=== PATIENT | female | born 1985 | race Caucasian/White ===

== ENCOUNTER → 2021-04-28 | Outpatient (CLI) | payer OTHER ==
--- NOTE | 2021-04-28 16:46 | Diagnostic Imaging Report ---
INDICATION: Routine anatomic survey. TECHNIQUE: Multiple real-time grayscale images were obtained over the gravid uterus. COMPARISON: None FINDINGS: Single live intrauterine is identified. heart rate is documented at 149 bpm. Amniotic fluid was not objectively measured, but subjectively appears to be within normal limits. Placenta is anterior, not low-lying. Anatomic survey was performed and is grossly unremarkable. kidneys, bladder, stomach, four-chamber heart, cord insertion and three-vessel cord are well visualized. Intracranial structures and spine are grossly unremarkable as well. Please see below for additional size measurements. Biometrical measurements are as follows: Biparietal 4.35 cm, age 19 weeks 2 days. Head circumference 16.88 cm, age 19 weeks 4 days. Abdominal circumference 14.41 cm, age 19 weeks 6 days. Femur length 3.12 cm, age 19 weeks 5 days. Sonographic estimate age: 19 weeks 5 days. Sonographic estimated date of delivery: 09/17/2021. Estimated Weight: 306 gm (+/- 45 gm). LMP percentile: 28%. heart rate: 149 beats per minute. number: 1 of 1. Clinical dates: 20 weeks and 0 days with estimated date of delivery of 09/15/2021. IMPRESSION: Single live intrauterine with size and dates as described above. No gross abnormalities are seen on today's study. Dictated by: Dictated on workstation # [id number]
== END ==
LOC: RAD 15:15
PROVIDERS: ATTEND Nurse Practitioner Women's Health
DX: Z34.02 Encounter for supervision of normal first pregnancy, second trimester (principal); Z3A.20 20 weeks gestation of pregnancy
CPT/HCPCS: 76805

== ENCOUNTER 2021-09-23 06:30 | Inpatient (IN) | payer OTHER ==
[2021-09-23] VITALS (43 sets, daily range): BP systolic 97–141; BP diastolic 51–88
[~2021-09-23] VITALS: Ht 167 cm; Wt 83.0 kg
--- OUTSIDE RECORDS SUMMARY | 2021-09-23 07:37 | XMS REPORT | Clinical Summary ---
Author Author [facility] Organization [facility] Address Unknown Phone Unavailable Care Team Providers Care Sizing Machine Tender Name Role Phone Calvin Gimenez MD PCP Source Comments Some departments are not documenting in the electronic medical record. If you d o not see the information that you expected, contact Release of Information in [facility] [employer] Information Management department at [phone] for further assistan ce in locating additional records.[facility] Allergies No known active allergies Medications End Date Status Medication Sig Dispensed Refills Start Date Active ergocalciferol (VITAMIN Take 1 Cap by 12 Cap 3 D-2) 50,000 unit PO mouth Every 7 0 capsuleIndications: Days. Vitamin D deficiency Active MULTI-VITAMIN PO Take by 0 mouth. Active pyridoxine (VITAMIN B-6) Take 1 Tab by 60 Tab 2 25 mg PO Tab mouth twice 1 daily. Active levothyroxine (SYNTHROID) 1 Tab daily. 90 Tab 3 50 mcg PO tablet 1 Active Problems Problem Noted Date Hypothyroidism 03/04/2010 PCOS (polycystic ovarian syndrome) 03/04/2010 Immunizations Name Administration Dates Next Due DTaP Vaccine 02/23/2010 Surgical History Surgery Date Site/Laterality Comments TONSIL AND ADENOIDECTOMY Medical History Medical History Date Comments Hypothyroidism 2008 PCOS (polycystic ovarian syndrome) Family History Medical History Relation Name Comments Diabetes Father Hypertension Father Heart Attack Maternal Grandfather Cancer Maternal lung cancer Grandmother Diabetes Mother Hypertension Mother Other Mother sarcoid Thyroid Disease Mother Diabetes Paternal Grandmother Thyroid Disease Sister Relation Name Status Comments Father Maternal Grandfather Maternal Grandmother Mother Paternal Grandmother Sister Social History Date Tobacco Use Types Packs/Day Years Used Never Smoker Comments Alcohol Use Standard Drinks/Week No 0 (1 standard drink = 0.6 o z pure alcohol) Sex Assigned at Date Recorded Not on file Obstetrics History Para Term AB IAB SAB Ectopic Multiple Living Live B irths 1 1 0 1 Date GA Total Labor Labor/2nd/3rd Weight Sex Delivery Anes PTL Leida A1 A5 Name Clin Outcome SAB Last Filed Vital Signs Reading Time Taken Comments Vital Sign 128/74 08/12/2010 3:32 PM [employer]AIL [employer] REPRESENTATIVE Blood Pressure 76 08/12/2010 3:32 PM [employer]AIL [employer] REPRESENTATIVE Pulse 37 C (98.6 F) 08/12/2010 3:32 PM [employer]AIL [employer] SALES REPRESENTATIVE Temperature 16 08/12/2010 3:32 PM [employer]AIL [employer]ESS SALES REPRESENTATIVE Respiratory Rate - - Oxygen Saturation - - Inhaled Oxygen Concentration 67.2 kg (148 lb 3.2 oz) 08/12/2010 3:32 PM [employer]AIL [employer] SAL[employer] REPRESENTATIVE Weight 167.6 cm (5' 6") 08/12/2010 3:32 PM [employer] REPRESENTATIVE Height 23.92 08/12/2010 3:32 PM [employer]AIL [employer] REPRESENTATIVE Body Mass Index Plan of Treatment Health Maintenance Due Date Last Done Comments COVID-19 VACCINE (1) 1989 HIV SCREENING 09/01/1999 HEPATITIS C SCREENING 2002 PHYSICAL (COMPREHENSIVE) 2002 EXAM CERVICAL CANCER SCREENING 2005 DTAP/TDAP VACCINES (2 - 02/24/2020 02/23/2010 Tdap) INFLUENZA VACCINE 04/05/2022 Results Not on filefrom Last 3 Months Advance Directives Patient Hatchery Man Explanation Type Date Recorded Advance Directives 07/26/2010 12:00 AM and Living Will Care Teams Start Date End Date Sizing Machine Tender Relationship Specialty 03/04/10 Calvin Gimenez MD PCP - General [address] [place] [id number]
[2021-09-23] MEDS ORDERED: MINERAL OIL 30 ML OIL TOP PRN (07:45)
[2021-09-23 08:21] LABS: BASOPHILS # (AUTO) 0.1 10^3/uL (0.0-0.1); BASOPHILS % (AUTO) 1 % (0-10); EOSINOPHILS # (AUTO) 0.3 10^3/uL (0.0-0.3); EOSINOPHILS % (AUTO) 3 % (0-10); HEMATOCRIT 38 % (35-52); HEMOGLOBIN 13.2 g/dL (11.5-16.0); LYMPHOCYTES # (AUTO) 1.9 10^3/uL (1.0-4.0); LYMPHOCYTES % (AUTO) 19 % (12-44); MEAN CORPUSCULAR HEMOGLOBIN 32 pg (25-34); MEAN CORPUSCULAR HGB CONC 35 g/dL (32-36); MEAN CORPUSCULAR VOLUME 93 fL (80-99); MEAN PLATELET VOLUME 12.4 fL (9.0-12.2); MONOCYTES # (AUTO) 0.8 10^3/uL (0.0-1.0); MONOCYTES % (AUTO) 8 % (0-12); NEUTROPHILS % (AUTO) 69 % (42-75); PLATELET COUNT 132 10^3/uL (130-400); WHITE BLOOD COUNT 10.1 10^3/uL (4.3-11.0)
--- NOTE | 2021-09-23 08:30 | History & Physical-OB ---
OB - Chief Complaint & HPI Date/Time Date of Admission: Date of Admission: Sep 23, 2021 at 07:34 Date seen by a Provider: Sep 23, 2021 Time Seen by a Provider: 08:25 Chief Complaint/History OB-Reason for Admission/Chief: Induction of Labor Hx : 4 Hx Para: 2 Expected Date of Delivery: Sep 15, 2021 Gestational Age in Weeks: 41 Gestational Age in Days: 1 Indication for induction: post dates Admission Nurse Assessment Rev: Yes History of Labs A neg Antibody neg RI RPR NR HBsAg NR HIV NR GC neg GBS neg Allergies and Home Medications Allergies Coded Allergies: No Known Drug Allergies (Unverified , 09/23/21) Patient Home Medication List Home Medication List Reviewed: Yes OB - History Hx of Present Care: Yes Ultrasounds: Normal mid trimester US Obstetrical Complications: None Medical Complications: None Patient Past Medical History n/a OB - Admission Exam Physical Exam HEENT: NCAT Heart: Rhythm Normal Lungs: Clear Abdomen: Gravid Extremities: Normal Reflexes: Normal Cervical Dilatation: 5cm Effacement: 75% Station: -1 Membranes: Intact Heart Rate: 130's Accelerations: Accelerations Present Decelerations: No Decelerations Short Term Variability: Present Assisted Variability: Average (6-25) Contractions on Admission: 6-10 Minutes Apart Intensity: Mild Olmos Scoring Tool (Modified) Dilation (cm): >5cm (3) Effacement (%): 80-100% (3) Descent/Station: -1,0 (2) Cervix Consistency: Soft (2) Cervix Position: Anterior (2) Add 1 point for: Each previous vaginal delivery (1) Subtract 1 point for: Postdate (-1) Olmos Score: 13 Labs Laboratory Tests Test 09/23/21 07:43 Range/Units White Blood Count 10.1 4.3-11.0 10^3/uL Red Blood Count 4.12 3.80-5.11 10^6/uL Hemoglobin 13.2 11.5-16.0 g/dL Hematocrit 38 35-52 % Mean Corpuscular Volume 93 80-99 fL Mean Corpuscular Hemoglobin 32 25-34 pg Mean Corpuscular Hemoglobin Concent 35 32-36 g/dL Red Cell Distribution Width 11.9 10.0-14.5 % Platelet Count 132 130-400 10^3/uL Mean Platelet Volume 12.4 H 9.0-12.2 fL Immature Granulocyte % (Auto) 0 % Neutrophils (%) (Auto) 69 42-75 % Lymphocytes (%) (Auto) 19 12-44 % Monocytes (%) (Auto) 8 0-12 % Eosinophils (%) (Auto) 3 0-10 % Basophils (%) (Auto) 1 0-10 % Neutrophils # (Auto) 7.0 1.8-7.8 10^3/uL Lymphocytes # (Auto) 1.9 1.0-4.0 10^3/uL Monocytes # (Auto) 0.8 0.0-1.0 10^3/uL Eosinophils # (Auto) 0.3 0.0-0.3 10^3/uL Basophils # (Auto) 0.1 0.0-0.1 10^3/uL Immature Granulocyte # (Auto) 0.0 0.0-0.1 10^3/uL OB - Assessment/Plan/Diagnosis Assessment Assessment: induction of labor Admission Dx 36 yo @ 41.1 AMA Post dates GBS neg Admission Status: Inpatient Order (span 2 midnights) Reason for Inpatient Admission: IOL at 41 weeks Plan Plan: Induction Induction Method: CJ KIRBY DO Sep 23, 2021 08:30
[2021-09-23] MEDS ORDERED: fentaNYL 2 mcg/ml BUPIVA 0.125 100 ML ONE (09:02)
[2021-09-23] MEDS ORDERED: ONDANSETRON 4 MG/2 ML (SDV) Z0FRAN IV PRN (09:45)
[2021-09-23] MEDS ORDERED: NALOXONE 0.4 MG/ML 1 ML (NARCAN) VIAL IV PRN ×3 (09:45→15:00)
[2021-09-23] MEDS ORDERED: diphenhydrAMINE 50 MG/ML INJ (BENADRYL) IV PRN (09:45)
[2021-09-23] MEDS ORDERED: METOCLOPRAMIDE INJ 10 MG/2 ML (REGLAN) IV PRN (09:45)
[2021-09-23] MEDS ORDERED: EPIDURAL (fentaNYL 2 MCG/ML BUPIVA 0.125%)100 ML BAG EPI SCH (09:45)
[2021-09-23] MEDS ORDERED: LACTATED RINGERS 1,000 ML IV SCH (09:45)
[2021-09-23] MEDS: D5 LR IV SOLUTION 1,000 ML IV SCH ×2 (09:47→16:12)
[2021-09-23] MEDS ORDERED: fentaNYL 2 mcg/ml BUPIVA 0.125 100 ML EPI PRN (10:00)
[2021-09-23] MEDS ORDERED: CATHETER FLUSH 10 ML SYR IV SCH ×2 (14:00→22:00)
[2021-09-23] MEDS ORDERED: LIDOCAINE/EPI 2% 1:200,00 (XYLOCAINE) 10 ML VIAL ONE (14:03)
[2021-09-23] MEDS ORDERED: OXYTOCIN PRE-MIX DRIP 500 ML IV ONE (14:07)
[2021-09-23] MEDS: OXYTOCIN PRE-MIX DRIP 500 ML IV SCH ×2 (14:39→15:19)
--- NOTE | 2021-09-23 14:53 | OB Labor & Delivery Record ---
L&D History Date of Service Date of Service: Sep 23, 2021 History Expected Date of Delivery: Sep 15, 2021 Gestational Age in Weeks: 41 Hx : 4 Hx Para: 2 Complications Events: Routine care Operative Indications (Cesarea: N/A-Vaginal Delivery Intrapartal Events: None L&D Stage1 Stage One Onset of Labor - Date: Sep 23, 2021 Monitors and Tracing Monitor Mode: Internal Heart Rate: 130 Station: 0 Prison Variability: Average (6-10) Short Term Variability: Present Presentation: Vertex Vital Signs VS - Last 72 Hours, by Label 09/23/21 09/23/21 09/23/21 09/23/21 07:55 07:55 09:18 09:25 Temp 36.4 36.4 Pulse 84 84 106 86 Resp 16 16 16 16 B/P (MAP) 140/88 (105) 141/84 (103) 134/76 (95) Pulse Ox 99 99 99 99 O2 Delivery Room Air Room Air Room Air Room Air 09/23/21 09/23/21 09/23/21 09/23/21 09:30 09:35 09:40 09:45 Temp 37.4 Pulse 93 83 75 86 Resp 16 16 16 16 B/P (MAP) 127/75 (92) 120/76 (91) 121/80 (94) 121/87 (98) Pulse Ox 99 98 98 O2 Delivery Room Air Room Air Room Air Room Air 09/23/21 09/23/21 09/23/21 09/23/21 09:50 09:53 09:56 09:59 Pulse 82 79 81 84 Resp 16 16 16 16 B/P (MAP) 120/77 (91) 117/77 (90) 113/73 (86) 117/77 (90) Pulse Ox 98 98 98 98 O2 Delivery Room Air Room Air Room Air Room Air 09/23/21 09/23/21 09/23/21 09/23/21 10:00 10:05 10:08 10:10 Pulse 82 84 78 85 Resp 16 16 16 16 B/P (MAP) 118/81 (93) 113/75 (88) 113/73 (86) 111/70 (84) Pulse Ox 99 98 100 100 O2 Delivery Room Air Room Air Room Air Room Air 09/23/21 09/23/21 09/23/2122 10:13 10:20 10:25 10:40 Pulse 83 86 77 91 Resp 16 16 16 16 B/P (MAP) 118/76 (90) 118/77 (91) 119/69 (86) 119/76 (90) Pulse Ox 100 100 100 100 O2 Delivery Room Air Room Air Room Air Room Air 09/23/21 09/23/21 09/23/21 09/23/21 10:55 11:10 11:25 11:40 Temp 37.2 Pulse 80 88 80 94 Resp 16 16 16 16 B/P (MAP) 117/76 (90) 120/78 (92) 118/77 (91) 124/77 (93) Pulse Ox 100 100 100 100 O2 Delivery Room Air Room Air Room Air Room Air 09/23/21 09/23/21 09/23/21 09/23/21 11:55 12:10 12:25 12:35 Pulse 81 92 73 71 Resp 16 16 16 16 B/P (MAP) 122/80 (94) 118/76 (90) 122/75 (91) 120/77 (91) Pulse Ox 99 99 99 99 O2 Delivery Room Air Room Air Room Air Room Air 09/23/21 09/23/21 09/23/21 09/23/21 12:40 12:45 13:00 13:10 Pulse 81 75 74 Resp 16 16 16 B/P (MAP) 120/77 (91) 129/85 (100) 127/81 (96) Pulse Ox 100 100 O2 Delivery Room Air Room Air Room Air Room Air 09/23/21 09/23/21 13:15 13:30 Temp 37.2 Pulse 81 Resp 16 B/P (MAP) 128/80 (96) Pulse Ox 100 O2 Delivery Room Air Room Air Rupture of Membranes Spontaneous Ruture of Membrane: No Amniotic Membrane Rupture Time: 832 Amniotic Membrane Fluid Desc.: Clear Vaginal Bleeding Description: Normal Show Induction/Anesthesia Epidural Cath Placement - Time: 923 Progress/Notes Patient admitted for post dates IOL, AROM performed as only form of augmentation at 5 cm dilatation. Epidural received and the patient progressed to complete and +1 station. L&D Stage2 Stage Two Stage II Date: Sep 23, 2021 Monitors and Tracing Monitor Mode: Internal Heart Rate: 130 Position: Right Occiput Anterior Presentation: Vertex Cord Descript/Complications Cord Vessel Description: 3 Vessels Delivery Type Delivery Method: Spontaneous Vaginal Anterior Shoulder: Left Episiotomy/Perineal Laceration Laceraction(s)/Extensions: Yes Episiotomy Description: Perineal Extension/lac, 1st degree Degree (describe repair) 1st degree perineal laceration repaired using 3-0 rapide in usual fashion. Condition of Infant Delivery 1 minute Comment: 8 5 minute Comment: 8 Notes Live female weight 8lbs even. Condition of Condition of Infant: Living Exam: No Observed Abnormalities Resuscitation Resuscitation: N/A - Spontaneous Resp L&D Stage3 Stage Three Stage III Date: Sep 23, 2021 Pictocin Pitocin Administration Comment: 30 mu wide open after delivery of placenta Placenta Delivery Placenta Delivery: Spontaneous Delivery Summary Summary Estimated blood loss (mL): 350 Attending at delivery: Cj Baker DO Condition of Delivery Examined: Cervix Examined, Uterus Explored Post Hemorrhage: No Condition of Mother stable Condition of (s) stable CJ BAKER DO Sep 23, 2021 14:53
--- NOTE | 2021-09-23 14:54 | Discharge Inst-Women's Service ---
Discharge Inst-Women's Serv Depart Medication/Instructions New, Converted or Re-Newed RX: Transmitted to Pharmacy Final Diagnosis PPD 1 NVD Problems Reviewed?: Yes Consults/Follow Up Additional Follow Up: Yes Orders/Referrals Dr. Baker in 6 weeks Activity Activity: Activity as Tolerated Driving Instructions: No Driving for 1 Week NO SMOKING: NO SMOKING Nothing Inside Vagina: No Douching, No Ault, No Tampons Diet Discharge Diet: No Restrictions Symptoms to Report to : Bleeding Excessive, Pain Increased, Fever Over 101 Degrees F, Vaginal Bleeding Increase, Questions/Concerns For Any Problems or Questions: Contact Your Physician CJ BAKER DO Sep 23, 2021 14:54
[2021-09-23] MEDS ORDERED: ACHD5005 PO (14:56)
[2021-09-23] MEDS ORDERED: FERR325T24 PO (14:56)
[2021-09-23] MEDS ORDERED: IBUP-844 PO (14:56)
[2021-09-23] MEDS ORDERED: DIBU30OI TOP (14:56)
[2021-09-23] MEDS ORDERED: BENZ78AE5 TP (14:56)
[2021-09-23] MEDS ORDERED: DOCU100C37 PO (14:56)
[2021-09-23] MEDS ORDERED: BENZOCAINE/MENTHOL (DERMOPLAST) 56 ML CAN TP PRN (15:00)
[2021-09-23] MEDS ORDERED: HYDROcodone/APAP 5 MG/325 MG (LORTAB) TAB PO PRN (15:00)
[2021-09-23] MEDS ORDERED: MEASLES,MUMPS,RUBELLA 1 EA INJ SQ ONE (15:00)
[2021-09-23] MEDS ORDERED: DIBUCAINE 1% OINTMENT 30 GM TUBE TOP PRN (15:00)
[2021-09-23] MEDS ORDERED: TETANUS,DIPTH,PERTUSS P/F (BOOSTRIX) 0.5 ML VIAL IM ONE (15:00)
[2021-09-23] MEDS ORDERED: WITCH HAZEL(TUCKS) 40 EA JAR TOP PRN (15:00)
[2021-09-23] MEDS: ACETAMINOPHEN 500 MG TAB (TYLENOL) PO SCH (18:48)
[2021-09-23] MEDS: IBUPROFEN 600 MG (MOTRIN) TAB PO SCH (18:48)
[2021-09-23] MEDS: DOCUSATE SODIUM 100 MG (COLACE) CAP PO SCH (20:04)
[2021-09-24 00:16] VITALS: BP 106/60
[2021-09-24] MEDS: ACETAMINOPHEN 500 MG TAB (TYLENOL) PO SCH ×3 (00:16→08:30)
[2021-09-24] MEDS: IBUPROFEN 600 MG (MOTRIN) TAB PO SCH ×4 (00:16→12:34)
[2021-09-24 04:30] VITALS: BP 108/55
[2021-09-24 05:34] LABS: BASOPHILS # (AUTO) 0.1 10^3/uL (0.0-0.1); BASOPHILS % (AUTO) 0 % (0-10)
[2021-09-24 05:37] LABS: EOSINOPHILS # (AUTO) 0.2 10^3/uL (0.0-0.3); EOSINOPHILS % (AUTO) 2 % (0-10); HEMATOCRIT 34 % (35-52); HEMOGLOBIN 11.4 g/dL (11.5-16.0); LYMPHOCYTES # (AUTO) 2.7 10^3/uL (1.0-4.0); LYMPHOCYTES % (AUTO) 21 % (12-44); MEAN CORPUSCULAR HEMOGLOBIN 31 pg (25-34); MEAN CORPUSCULAR HGB CONC 34 g/dL (32-36); MEAN CORPUSCULAR VOLUME 94 fL (80-99); MEAN PLATELET VOLUME 11.8 fL (9.0-12.2); MONOCYTES # (AUTO) 0.8 10^3/uL (0.0-1.0); MONOCYTES % (AUTO) 6 % (0-12); NEUTROPHILS # (AUTO) 9.2 10^3/uL (1.8-7.8); NEUTROPHILS % (AUTO) 71 % (42-75); PLATELET COUNT 115 10^3/uL (130-400); WHITE BLOOD COUNT 13.1 10^3/uL (4.3-11.0)
[2021-09-24] MEDS ORDERED: FERROUS SULF 325 MG (IRON) TAB PO SCH (07:00)
[2021-09-24] MEDS ORDERED: PRENATAL VITAMIN 1 EA TAB PO SCH (07:00)
--- NOTE | 2021-09-24 08:15 | Anesthesia-Regional Post-Op ---
Regional Patient Condition Mental Status: Alert, Oriented x3 Circulation: Same as Pre-Op Headache: Absent Sensation: Full Recovery Motor Block: Absent Post Op Complications Complications None Follow Up Care/Instructions Patient Instructions None needed. Anesthesia/Patient Condition Patient is doing well, no complaints, stable vital signs, no apparent adverse anesthesia problems. No complications reported per nursing. D/C home per [facility] Criteria: Yes CHRISTIANO MUSTAFA CRNA Sep 24, 2021 08:15
[2021-09-24] MEDS: DOCUSATE SODIUM 100 MG (COLACE) CAP PO SCH (08:30)
[2021-09-24 08:32] VITALS: BP 122/74
--- NOTE | 2021-09-24 12:31 | Postpartum Progress Note ---
Note Note Day #1 Subjective: Patient is without complaints. Ambulating, voiding. Tolerating a regular diet without nausea or vomiting. Normal lochia. Pain is well controlled with oral pain medications. exclusively. Passing flatus. Objective: VS - Last 72 Hours, by Label 09/23/21 09/23/21 09/23/21 09/23/21 07:55 07:55 09:18 09:25 Temp 36.4 36.4 Pulse 84 84 106 86 Resp 16 16 16 16 B/P (MAP) 140/88 (105) 141/84 (103) 134/76 (95) Pulse Ox 99 99 99 99 O2 Delivery Room Air Room Air Room Air Room Air 09/23/21 09/23/21 09/23/21 09/23/21 09:30 09:35 09:40 09:45 Temp 37.4 Pulse 93 83 75 86 Resp 16 16 16 16 B/P (MAP) 127/75 (92) 120/76 (91) 121/80 (94) 121/87 (98) Pulse Ox 99 98 98 O2 Delivery Room Air Room Air Room Air Room Air 09/23/21 09/23/21 09/23/21 09/23/21 09:50 09:53 09:56 09:59 Pulse 82 79 81 84 Resp 16 16 16 16 B/P (MAP) 120/77 (91) 117/77 (90) 113/73 (86) 117/77 (90) Pulse Ox 98 98 98 98 O2 Delivery Room Air Room Air Room Air Room Air 09/23/21 09/23/21 09/23/21 09/23/21 10:00 10:05 10:08 10:10 Pulse 82 84 78 85 Resp 16 16 16 16 B/P (MAP) 118/81 (93) 113/75 (88) 113/73 (86) 111/70 (84) Pulse Ox 99 98 100 100 O2 Delivery Room Air Room Air Room Air Room Air 09/23/21 09/23/21 09/23/21 09/23/21 10:13 10:20 10:25 10:40 Pulse 83 86 77 91 Resp 16 16 16 16 B/P (MAP) 118/76 (90) 118/77 (91) 119/69 (86) 119/76 (90) Pulse Ox 100 100 100 100 O2 Delivery Room Air Room Air Room Air Room Air 09/23/21 09/23/21 09/23/21 09/23/21 10:55 11:10 11:25 11:40 Temp 37.2 Pulse 80 88 80 94 Resp 16 16 16 16 B/P (MAP) 117/76 (90) 120/78 (92) 118/77 (91) 124/77 (93) Pulse Ox 100 100 100 100 O2 Delivery Room Air Room Air Room Air Room Air 09/23/21 09/23/21 09/23/21 09/23/21 11:55 12:10 12:25 12:35 Pulse 81 92 73 71 Resp 16 16 16 16 B/P (MAP) 122/80 (94) 118/76 (90) 122/75 (91) 120/77 (91) Pulse Ox 99 99 99 99 O2 Delivery Room Air Room Air Room Air Room Air 09/23/21 09/23/21 09/23/21 09/23/21 12:40 12:45 13:00 13:10 Pulse 81 75 74 Resp 16 16 16 B/P (MAP) 120/77 (91) 129/85 (100) 127/81 (96) Pulse Ox 100 100 O2 Delivery Room Air Room Air Room Air Room Air 09/23/21 09/23/21 09/23/21 09/23/21 13:15 13:30 13:45 14:00 Temp 37.2 Pulse 81 86 93 Resp 16 16 16 B/P (MAP) 128/80 (96) 139/76 (97) 125/74 (91) Pulse Ox 100 100 99 O2 Delivery Room Air Room Air Room Air Room Air 09/23/21 09/23/21 09/23/21 09/23/21 14:15 14:30 14:37 14:54 Temp 37.2 Pulse 108 125 116 108 Resp 16 16 16 16 B/P (MAP) 129/86 (100) 134/86 (102) 139/62 (87) 114/70 (85) Pulse Ox 99 99 O2 Delivery Room Air Room Air Room Air Room Air 09/23/21 09/23/21 09/23/21 09/23/21 15:06 15:21 15:35 15:50 Pulse 94 93 92 93 Resp 16 16 16 16 B/P (MAP) 111/56 (74) 117/58 (77) 100/53 (69) 97/51 (66) O2 Delivery Room Air Room Air Room Air Room Air 09/23/21 09/23/21 09/24/21 09/24/21 16:27 20:05 00:16 04:30 Temp 36.1 36.4 36.4 Pulse 96 87 67 68 Resp 16 18 18 18 B/P (MAP) 100/57 (71) 107/61 (76) 106/60 (75) 108/55 (72) Pulse Ox 98 96 97 O2 Delivery Room Air Room Air Room Air 09/24/21 08:32 Temp 36.5 Pulse 86 Resp 18 B/P (MAP) 122/74 (90) Pulse Ox 98 O2 Delivery Room Air Physical Exam: General - Alert and oriented, no apparent distress Abdomen - Soft, appropriately tender to palpation, non-distended, fundus firm at umbilicus Extremities - no edema, negative Myron's bilaterally Assessment: Post- day # 1, status post vaginal delivery. Recovering well, hemodynamically stable Plan: Routine care. Viable female . Encourage breast feeding. Encourage ambulation. Heme: preop 13.2 --> 11.4. Plan for discharge today. Vitals - Labs Vital Signs - I&O Vital Signs Date Time Temp Pulse Resp B/P (MAP) Pulse Ox O2 Delivery O2 Flow Rate FiO2 09/24/21 08:32 36.5 86 18 122/74 (90) 98 Room Air 09/24/21 04:30 36.4 68 18 108/55 (72) 97 Room Air 09/24/21 00:16 36.4 67 18 106/60 (75) 96 09/23/21 20:05 36.1 87 18 107/61 (76) 98 Room Air 09/23/21 16:27 96 16 100/57 (71) Room Air 09/23/21 15:50 93 16 97/51 (66) Room Air 09/23/21 15:35 92 16 100/53 (69) Room Air 09/23/21 15:21 93 16 117/58 (77) Room Air 09/23/21 15:06 94 16 111/56 (74) Room Air 09/23/21 14:54 37.2 108 16 114/70 (85) Room Air 09/23/21 14:37 116 16 139/62 (87) Room Air 09/23/21 14:30 125 16 134/86 (102) 99 Room Air 09/23/21 14:15 108 16 129/86 (100) 99 Room Air 09/23/21 14:00 93 16 125/74 (91) 99 Room Air 09/23/21 13:45 86 16 139/76 (97) 100 Room Air 09/23/21 13:30 37.2 81 16 128/80 (96) 100 Room Air 09/23/21 13:15 Room Air 09/23/21 13:10 74 16 127/81 (96) 100 Room Air 09/23/21 13:00 Room Air 09/23/21 12:45 75 16 129/85 (100) Room Air 09/23/21 12:40 81 16 120/77 (91) 100 Room Air 09/23/21 12:35 71 16 120/77 (91) 99 Room Air I & O 09/24/21 07:00 Intake Total 2200 ml Balance 2200 ml Labs Laboratory Tests 09/24/21 05:22: White Blood Count 13.1H, Red Blood Count 3.63L, Hemoglobin 11.4L, Hematocrit 34L , Mean Corpuscular Volume 94, Mean Corpuscular Hemoglobin 31, Mean Corpuscular Hemoglobin Concent 34, Red Cell Distribution Width 11.9, Platelet Count 115L, Mean Platelet Volume 11.8, Immature Granulocyte % (Auto) 1, Neutrophils (%) (Auto) 71, Lymphocytes (%) (Auto) 21, Monocytes (%) (Auto) 6, Eosinophils (%) (Auto) 2, Basophils (%) (Auto) 0, Neutrophils # (Auto) 9.2H, Lymphocytes # (Auto) 2.7, Monocytes # (Auto) 0.8, Eosinophils # (Auto) 0.2, Basophils # (Auto) 0.1, Immature Granulocyte # (Auto) 0.1, Percent Immature Platelet Fraction 10.5H CRISTY DONOVAN MD Sep 24, 2021 12:31
[2021-09-24 12:32] VITALS: BP 114/71
== END 2021-09-24 17:15 | disposition home or self-care (01) | DRG 807 ==
LOC: LDRP 07:34
PROVIDERS: ADMIT Obstetrics & Gynecology; ATTEND Obstetrics & Gynecology
PROC: 10E0XZZ Delivery of Products of Conception, External Approach (ICD-10-PCS; principal; 2021-09-23)
PROC: 10907ZC Drainage of Amniotic Fluid, Therapeutic from Products of Conception, Via Natural or Artificial Opening (ICD-10-PCS; 2021-09-23)
PROC: 0HQ9XZZ Repair Perineum Skin, External Approach (ICD-10-PCS; 2021-09-23)
DX: O48.0 Post-term pregnancy (principal); Z37.0 Single live birth; Z3A.41 41 weeks gestation of pregnancy; O70.0 First degree perineal laceration during delivery
CPT/HCPCS: 36415; 83033; 85025; 86850; 86900; 86901

== ENCOUNTER → 2022-06-04 | Outpatient (CLI) | payer OTHER ==
[~2022-06-04] MED LIST: ACHD5005 PO; BENZ78AE5 TP; DIBU30OI TOP; DOCU100C37 PO; FERR325T24 PO; IBUP-844 PO
== END ==
LOC: LAB 13:09
PROVIDERS: ATTEND Family Medicine
DX: E03.9 Hypothyroidism, unspecified (principal)
CPT/HCPCS: 36415; 84436; 84443